=== PATIENT | male | born 1965 | race Caucasian/White ===

== ENCOUNTER 2019-06-27 09:29 | Emergency (ER) | payer OTHER ==
[~2019-06-27] VITALS: Ht 165.1 cm; Wt 80.3 kg
[2019-06-27 09:38] VITALS: Ht 165.1 cm; Wt 80.3 kg
[2019-06-27 10:28] LABS: PLATELET COUNT 203 x10^3mcL (130-400); RED CELL DISTRIBUTION WIDTH 12.9 % (11.5-14.5)
[2019-06-27 10:56] LABS: CALCIUM 8.8 mg/dL (8.5-10.1); CARBON DIOXIDE 27.6 mmol/L (21-32); CHLORIDE SERUM 105 mmol/L (98-107); CREATININE SERUM 0.9 mg/dL (0.7-1.3); GFR1 > 60 mL/min; GLUCOSE SERUM 97 mg/dL (74-106); POTASSIUM SERUM 3.6 mmol/L (3.5-5.1); SODIUM SERUM 139 mmol/L (136-145)
[2019-06-27 11:01] LABS: ALBUMIN 3.7 g/dL (3.4-5.0); ALKALINE PHOSPHATASE 61 U/L (46-116); ALT/SGPT 35 U/L (16-63); AST/SGOT 18 U/L (15-37); BILIRUBIN TOTAL 0.59 mg/dL (0.20-1.00); LIPASE 227 IU/L (73-393); TOTAL PROTEIN, SERUM 7.1 g/dL (6.4-8.2)
[2019-06-27 11:43] VITALS: BP 120/70
== END 2019-06-27 11:43 | disposition home or self-care (01) ==
LOC: ED 09:29
PROVIDERS: Emergency Medicine
DX: K59.00 Constipation, unspecified (principal); K64.9 Unspecified hemorrhoids; I10 Essential (primary) hypertension
CPT/HCPCS: J2270; J2405; J7030

== ENCOUNTER 2019-11-01 11:18 | Emergency (ER) | payer OTHER ==
[~2019-11-01] VITALS: Ht 165.1 cm; Wt 79.8 kg
[2019-11-01 11:24] VITALS: BP 143/92; Ht 165.1 cm; Wt 79.8 kg
== END 2019-11-01 11:47 | disposition home or self-care (01) ==
LOC: ED 11:18
DX: S09.8XXA Other specified injuries of head, initial encounter (principal); W19.XXXA Unspecified fall, initial encounter; Y93.89 Activity, other specified; Y92.89 Other specified places as the place of occurrence of the external cause; Y99.8 Other external cause status; I10 Essential (primary) hypertension

== ENCOUNTER 2020-03-19 01:30 | Emergency (ER) | payer OTHER ==
[~2020-03-19] VITALS: Ht 165.1 cm; Wt 82.3 kg
[2020-03-19 01:38] VITALS: Ht 165.1 cm; Wt 82.3 kg
[2020-03-19 02:59] LABS: microscopic required? NO
[2020-03-19 03:03] LABS: BASOPHIL % 0.7 % (0-2); PLATELET COUNT 210 x10^3mcL (130-400); RED CELL DISTRIBUTION WIDTH 12.8 % (11.5-14.5)
[2020-03-19 03:06] LABS: urine erythrocyte NEGATIVE (NEGATIVE)
[2020-03-19 03:37] LABS: CALCIUM 8.6 mg/dL (8.5-10.1); CARBON DIOXIDE 29.4 mmol/L (21-32); CHLORIDE SERUM 102 mmol/L (98-107); GFR1 > 60 mL/min; GLUCOSE SERUM 109 mg/dL (74-106); POTASSIUM SERUM 3.7 mmol/L (3.5-5.1); SODIUM SERUM 138 mmol/L (136-145)
[2020-03-19 05:51] VITALS: BP 125/85
== END 2020-03-19 05:51 | disposition home or self-care (01) ==
LOC: ED 01:30
PROVIDERS: Emergency Medicine
DX: N39.0 Urinary tract infection, site not specified (principal); I10 Essential (primary) hypertension; Z90.89 Acquired absence of other organs
CPT/HCPCS: J1885; Q0092

== ENCOUNTER 2020-08-11 17:21 | Emergency (ER) | payer OTHER ==
[~2020-08-11] VITALS: Ht 165.1 cm; Wt 78.9 kg
[2020-08-11 17:26] VITALS: Ht 165.1 cm; Wt 78.9 kg
[2020-08-11 18:37] LABS: BASOPHIL % 1.8 % (0.2-1.5); PLATELET COUNT 328 x10^3mcL (152-348); RED CELL DISTRIBUTION WIDTH 13.7 % (12.1-16.2)
[2020-08-11 18:53] LABS: CALCIUM 8.9 mg/dL (8.5-10.1); CHLORIDE SERUM 100 mmol/L (98-107); CREATININE SERUM 0.9 mg/dL (0.7-1.3); GFR1 > 60 mL/min; GLUCOSE SERUM 156 mg/dL (74-106); POTASSIUM SERUM 4.6 mmol/L (3.5-5.1); SODIUM SERUM 131 mmol/L (136-145)
[2020-08-11 18:58] LABS: ALBUMIN 3.5 g/dL (3.4-5.0); ALKALINE PHOSPHATASE 66 U/L (46-116); ALT/SGPT 55 U/L (16-63); AST/SGOT 23 U/L (15-37); BILIRUBIN TOTAL 0.3 mg/dL (0.20-1.00); TOTAL PROTEIN, SERUM 7.6 g/dL (6.4-8.2)
[2020-08-11 20:59] VITALS: BP 129/80
== END 2020-08-11 20:59 | disposition home or self-care (01) ==
LOC: ED 17:21
PROVIDERS: Student in an Organized Health Care Education/Training Program
DX: K64.4 Residual hemorrhoidal skin tags (principal); K59.00 Constipation, unspecified; I10 Essential (primary) hypertension
CPT/HCPCS: C9113; Q9967

== ENCOUNTER 2020-08-15 21:40 | Emergency (ER) | payer OTHER ==
[~2020-08-15] VITALS: Ht 167.6 cm; Wt 79.4 kg
[2020-08-15 21:49] VITALS: Ht 167.6 cm; Wt 79.4 kg
[2020-08-16 02:02] VITALS: BP 111/76
== END 2020-08-16 02:57 | disposition home or self-care (01) ==
LOC: ED 21:40
DX: K64.8 Other hemorrhoids (principal); I10 Essential (primary) hypertension